=== PATIENT | female | born 1950 ===

== ENCOUNTER 2022-12-26 07:00 | Inpatient (IN) | payer OTHER ==
[~2022-12-26] VITALS: Ht 160 cm; Wt 75.3 kg
[2022-12-26] MEDS ORDERED: COZAAR100 MG PO (08:38)
[2022-12-26] MEDS ORDERED: CRESTOR10 MG PO (08:39)
[2023-01-02 07:06] LABS: HEMATOCRIT 32.8 % (36.0-45.00); HEMOGLOBIN 11.2 g/dL (12.0-15.00); MEAN CELL VOLUME 87.7 fL (80.00-100.00); MEAN CORPUSCULAR HEMOGLOBIN 29.9 pg (27.00-32.0); MEAN CORPUSCULAR HGB CONC 34.1 g/dl (32.0-36.0); PLATELET COUNT 216 K/uL (150-450); RED BLOOD COUNT 3.74 M/uL (4.00-6.00); RED CELL DISTRIBUTION WIDTH 13.6 % (11.5-14.5)
[2023-01-03 06:51] LABS: HEMATOCRIT 31.2 % (36.0-45.00); HEMOGLOBIN 10.4 g/dL (12.0-15.00); MEAN CELL VOLUME 88.5 fL (80.00-100.00); MEAN CORPUSCULAR HEMOGLOBIN 29.4 pg (27.00-32.0); MEAN CORPUSCULAR HGB CONC 33.3 g/dl (32.0-36.0); PLATELET COUNT 221 K/uL (150-450); RED BLOOD COUNT 3.53 M/uL (4.00-6.00); RED CELL DISTRIBUTION WIDTH 13.4 % (11.5-14.5)
== END 2023-01-04 20:35 | DRG 470 ==
LOC: SURH 01-01 05:18 → O/R 01-01 05:18 → SURH 01-01 07:00
PROVIDERS: ADMIT Orthopaedic Surgery; ATTEND Orthopaedic Surgery
PROC: 0SRC0JZ Replacement of Right Knee Joint with Synthetic Substitute, Open Approach (ICD-10-PCS; principal; 2023-01-01 07:00)
DX: M17.11 Unilateral primary osteoarthritis, right knee (principal); D62 Acute posthemorrhagic anemia; M85.661 Other cyst of bone, right lower leg; R26.89 Other abnormalities of gait and mobility; I10 Essential (primary) hypertension

== ENCOUNTER 2024-09-29 07:33 | Outpatient (CLI) | payer OTHER ==
[~2024-09-29 07:33] MED LIST: COZAAR100 MG PO; CRESTOR10 MG PO
== END 2024-09-29 07:36 | disposition home or self-care (01) ==
LOC: TOM 07:33
PROVIDERS: ATTEND Student in an Organized Health Care Education/Training Program
DX: Z12.11 Encounter for screening for malignant neoplasm of colon (principal)